=== PATIENT | male | born 1985 | race Caucasian/White ===

== ENCOUNTER 2017-11-14 21:35 | Emergency (ER) | payer OTHER ==
[2017-11-14 21:41] VITALS: O2SAT 97
--- NOTE | 2017-11-14 21:43 | EDPHY ---
H & P Stated Complaint: D/C'd yesterday, corneal abbrasion, still has pain. Time Seen by Provider: 11/14/17 21:40 HPI/ROS: HPI CHIEF COMPLAINT: Left eye pain, corneal abrasion HISTORY OF PRESENT ILLNESS: Patient very pleasant 32-year-old male, otherwise healthy no significant medical history except pericarditis, he was diagnosed with a corneal abrasion of his left eye yesterday at [facility] in [place]. He flew back tonight he had increasing left eye pain. Decided come the emergency room for further evaluation. He was given erythromycin ointment, additionally was given Hebron. He now presents back to the emergency room if worsening pain. Denies fever. Patient reports to me he has been having hard time getting the erythromycin ointment in his left eye. He has no follow-up with Ophthalmology. Past Medical History: Pericarditis Past Surgical History: No significant surgical history Social History: Denies drugs alcohol tobacco. Family History: Noncontributory ROS REVIEW OF SYSTEMS: A comprehensive 10 point review of systems is otherwise negative aside from elements mentioned in the history of present illness. Exam Constitutional appears well nontoxic triage nursing summary reviewed, vital signs reviewed, awake/alert. Eyes right eye is normal, left eye conjunctiva is injected, over the 5:00 to 7 :00 position there is a large corneal abrasion. Pupils equal round react to light, iris intact, no evidence of hemorrhage, no evidence of vitreous hemorrhage, no Maria Teresa sign. No significant drainage or discharge. HENT normal inspection, atraumatic, moist mucus membranes, no epistaxis, neck supple/ no meningismus, no raccoon eyes. Respiratory clear to auscultation bilaterally, normal breath sounds, no respiratory distress, no wheezing. Cardiovascular rate normal, regular rhythm, no murmur, no edema, distal pulses normal. Gastrointestinal soft, non-tender, no rebound, no guarding, normal bowel sounds, no distension, no pulsatile mass. Genitourinary no CVA tenderness. Musculoskeletal no midline vertebral tenderness, full range of motion, no calf swelling, no tenderness of extremities, no meningismus, good pulses, neurovascularly intact. Skin pink, warm, & dry, no rash, skin atraumatic. Neurologic awake, alert and oriented x 3, AAOx3, moves all 4 extremities equally, motor intact, sensory intact, CN II-XII intact, normal cerebellar, normal vision, normal speech. Psychiatric normal mood/affect. Heme/Lymph/Immune no lymphadenopathy. Differential Diagnosis: Includes but is not limited to in a particular order corneal abrasion, corneal tear, corneal ulcer Medical Decision Making: Plan for this patient re-stain his eye, proparacaine for pain control here in the emergency room, visual acuity, given he is having great difficulty putting on erythromycin ointment I will switch him to tobramycin drops, I have also contact Ophthalmology for close follow-up. Sometimes they do have clinic on Thursday. Re-evaluation: 2201: Proparacaine was applied to the left eye and he immediately got pain relief. Fluorescein was instilled into the eye and there is a very large corneal abrasion it goes from the approximately 4:30 position on the clock to 830 and half of the lower eye field. Great pain control with the proparacaine. Here in emergency room I have ordered him ibuprofen 800 mg Hebron 10 mg, and Ocuflox eyedrops he is having a great deal difficulty putting the erythromycin ointment in. Additionally I did consult Ophthalmology 2201: Spoke with Ophthalmology Dr. Darci Piper, he will be glad to see the patient 10:00 a.m. Tomorrow morning. I relayed this to the patient. He is okay with this current plan. Visual acuity reviewed. 2237: Patient resting comfortably no acute distress. The patient resting comfortably. Pain well controlled. Source: Patient - Personal History Current Tetanus/Diphtheria Vaccine: Yes Current Tetanus Diphtheria and Acellular Pertussis (TDAP): Yes - Medical/Surgical History Hx Asthma: No Hx Chronic Respiratory Disease: No Hx Diabetes: No Hx Cardiac Disease: No Hx Renal Disease: No Hx Cirrhosis: No Hx Alcoholism: No Hx HIV/AIDS: No Hx Splenectomy or Spleen Trauma: No Other PMH: left collarbone hardware in and removed, dental implant, wisdom teeth extracted - Social History Smoking Status: Former smoker Constitutional: Initial Vital Signs Temperature (C) 36.7 C 11/14/17 21:37 Heart Rate 69 11/14/17 21:37 Respiratory Rate 16 11/14/17 21:37 Blood Pressure 131/88 H 11/14/17 21:37 O2 Sat (%) 97 11/14/17 21:37 O2 Delivery Mode Room Air Allergies/Adverse Reactions: No Known Allergies Allergy (Unverified 02/10/16 01:33) Home Medications: Medication Instructions Recorded Amphet Asp and D/Amphet [Adderall 20 mg PO DAILY 07/14/12 20 mg (RX)] Hydrocodone/APAP 5/325 [Hebron 1 - 2 tab PO Q4H PRN #10 tab 11/14/17 5/325] Ibuprofen [Motrin (*)] 800 mg PO Q6-8PRN #10 tab 11/14/17 Omeprazole 11/14/17 Ranitidine HCl 11/14/17 Medical Decision Making - Data Points Medications Given: Discontinued Medications Hydrocodone Bitart/Acetaminophen (Hebron 5/325mg Prepack#6) 1 btl TAKEHOME EDNOW ONE Stop: 11/14/17 22:00 Last Admin: 11/14/17 22:13 Dose: 1 btl Hydrocodone Bitart/Acetaminophen (Hebron 10/325) 1 tab PO EDNOW ONE Stop: 11/14/17 22:00 Last Admin: 11/14/17 22:25 Dose: 1 tab Ibuprofen (Motrin) 800 mg PO EDNOW ONE Stop: 11/14/17 22:00 Last Admin: 11/14/17 22:09 Dose: 800 mg Ofloxacin (Ocuflox 0.3%) 1 drops EACHEYE EDNOW ONE Stop: 11/14/17 22:02 Last Admin: 11/14/17 22:15 Dose: 1 drop Ofloxacin (Ocuflox 0.3% Opht Drops Prepack) 1 btl TAKEHOME EDNOW ONE Stop: 11/14/17 22:02 Last Admin: 11/14/17 22:11 Dose: 1 btl Tobramycin (Tobrex 0.3% Opht Drops Prepack) 1 btl TAKEHOME EDNOW ONE Stop: 11/14/17 22:00 Last Admin: 11/14/17 22:27 Dose: Not Given Departure - Departure Disposition: Home, Routine, Self-Care Clinical Impression: Corneal abrasion Qualifiers: Encounter type: initial encounter Laterality: left Qualified Code(s): S05.02XA - Injury of conjunctiva and corneal abrasion without foreign body, left eye, initial encounter Condition: Good Instructions: Corneal Abrasion (ED) Additional Instructions: [address] [place] [address] [email or web address] Referrals: Kj Carlson MD [Primary Care Provider] - As per Instructions Darci Piper MD [Medical Doctor] - As per Instructions Prescriptions: Hydrocodone/APAP 5/325 [Hebron 5/325] 1 - 2 tab PO Q4H PRN #10 tab PRN Reason: Pain, Moderate Ibuprofen [Motrin (*)] 800 mg PO Q6-8PRN #10 tab
[2017-11-14] MEDS ORDERED: PROPARACAINE 0.5% 15 ML OPHT DROP ONE (21:51)
[2017-11-14] MEDS ORDERED: IBUPROFEN 800 MG TAB PO ONE (21:59)
[2017-11-14] MEDS ORDERED: TOBRAMYCIN 0.3% SOLN PREPACK OPHT.BTL TAKEHOME ONE ×2 (21:59→22:17)
[2017-11-14] MEDS ORDERED: HYDROCOD/APAP 5/325 PREPACK#6 BTL TAKEHOME ONE (21:59)
[2017-11-14] MEDS ORDERED: OFLOXACIN 0.3% SOLN PREPACK OPHT.BTL TAKEHOME ONE (22:01)
[2017-11-14] MEDS ORDERED: OFLOXACIN 0.3% 5ML OPHT DROPS EACHEYE ONE (22:01)
[2017-11-14] MEDS: HYDROCODONE/APAP 10/325 TAB PO ONE ×2 (22:18→22:25)
[2017-11-14 22:29] VITALS: BP 126/78; PULSE 77; RESP 18; TEMP 98.4
== END 2017-11-14 22:52 | disposition home or self-care (01) ==
DX: S05.02XA Injury of conjunctiva and corneal abrasion without foreign body, left eye, initial encounter (principal); Z87.891 Personal history of nicotine dependence; X58.XXXA Exposure to other specified factors, initial encounter